=== PATIENT | female | born 1985 | race Caucasian/White ===

== ENCOUNTER 2017-04-28 21:10 | Emergency (ER) | payer OTHER | END 2017-04-28 21:36 | disposition home or self-care (01) | LOC: ER 21:10 | DX: K04.7 Periapical abscess without sinus (principal); K02.9 Dental caries, unspecified; J45.909 Unspecified asthma, uncomplicated; G43.909 Migraine, unspecified, not intractable, without status migrainosus; Z79.899 Other long term (current) drug therapy; Z91.040 Latex allergy status ==